=== PATIENT | female | born 1995 | race Caucasian/White ===

== ENCOUNTER 2019-10-07 17:45 | Emergency (ER) | payer SELFPAY ==
[~2019-10-07] VITALS: Ht 172.7 cm; Wt 109.0 kg
[2019-10-07 17:46] VITALS: BP 119/77
--- NOTE | 2019-10-07 18:44 | PHYS DOC ---
Past History Past Medical History: No Pertinent History Past Surgical History: Tonsillectomy Alcohol Use: None General Adult EDM: Chief Complaint: BACK PAIN OR INJURY HPI: HPI: 24-year-old female presents with lower back pain. The patient is an employee at the [employer]. This happened at work. The patient was walking up a staircase when she turned while stepping up a step and had sudden onset of pain in her low back just below the top of her iliac crest. Over the next several minutes the pain increased significantly. The patient had to be wheeled out in wheelchair due to the pain. She is able to walk at this time, but it is very sore and feels tight. It is worse on the right side radiates to the left. She is never had this before. She has had chronic back problems in the past that she states is due to her large breast size. Is different than those typical aches and pains. She denies falling or trauma. Denies numbness, tingling, altered sensation. No fever or chills. Review of Systems: Review of Systems: Constitutional: Denies fever or chills Eyes: Denies change in visual acuity HENT: Denies nasal congestion or sore throat Respiratory: Denies cough or shortness of breath Cardiovascular: Denies chest pain or edema GI: Denies abdominal pain, nausea, vomiting, bloody stools or diarrhea : Denies dysuria Musculoskeletal: Low back pain Integument: Denies rash Neurologic: Denies headache, focal weakness or sensory changes Endocrine: Denies polyuria or polydipsia Lymphatic: Denies swollen glands Psychiatric: Denies depression or anxiety Heart Score: Risk Factors: Risk Factors: DM, Current or recent (<one month) smoker, HTN, HLP, family history of CAD, obesity. Risk Scores: Score 0 - 3: 2.5% MACE over next 6 weeks - Discharge Home Score 4 - 6: 20.3% MACE over next 6 weeks - Admit for Clinical Observation Score 7 - 10: 72.7% MACE over next 6 weeks - Early Invasive Strategies Allergies: Allergies: Allergies Coded Allergies Type Severity Reaction Last Updated Verified No Known Drug Allergies 10/07/19 No Physical Exam: PE: Constitutional: Well developed, well nourished, obese, no acute distress, non- toxic appearance. [] HENT: Normocephalic, atraumatic, bilateral external ears normal, oropharynx moist, no oral exudates, nose normal. [] Eyes: PERRLA, EOMI, conjunctiva normal, no discharge. [] Neck: Normal range of motion, no tenderness, supple, no stridor. [] Cardiovascular:Heart rate regular rhythm, no murmur [] Lungs & Thorax: Bilateral breath sounds clear to auscultation [] Abdomen: Bowel sounds normal, soft, no tenderness, no masses, no pulsatile masses. [] Skin: Warm, dry, no erythema, no rash. [] Back: Tenderness over the right sacroiliac joint [] Extremities: No tenderness, no cyanosis, no clubbing, ROM intact, no edema. [] Neurologic: Alert and oriented X 3, normal motor function, normal sensory function, no focal deficits noted. [] Psychologic: Affect normal, judgement normal, mood normal. [] Current Patient Data: Vital Signs: Vital Signs Date Time Temp Pulse Resp B/P (MAP) Pulse Ox O2 Delivery O2 Flow Rate FiO2 10/07/19 17:46 98.0 81 16 119/77 (91) 99 Room Air EKG: EKG: [] Radiology/Procedures: Radiology/Procedures: [] Course & Med Decision Making: Course & Med Decision Making Pertinent Labs and Imaging studies reviewed. (See chart for details) The patient's x-ray is negative for acute findings. I believe this is right sacroiliitis. I will treat her with [place], prednisone, Flexeril. We will give the first doses in the ED. She is stable for discharge at this time. [] Cali Disclaimer: Cali Disclaimer: This electronic medical record was generated, in whole or in part, using a voice recognition dictation system. Departure Departure: Impression: Primary Impression: Pain of right sacroiliac joint Disposition: HOME/RESIDENCE PRIOR TO ADM Condition: STABLE Referrals: PCP,SYDNEE (PCP) Patient Instructions: Sacroiliac Joint Dysfunction Scripts Cyclobenzaprine Hcl (CYCLOBENZAPRINE HCL) 10 Mg Tablet 1 TAB PO TID PRN for MUSCLE SPASMS, #30 TAB Prov: NEHAL CORTEZ DO 10/07/19 Prednisone (PREDNISONE) 10 Mg Tablet 50 MG PO DAILY for sacroilitis for 3 Days, #15 TAB start 10/08/2019 Prov: NEHAL CORTEZ DO 10/07/19 Hydrocodone Bit/Acetaminophen (NORCO 5-325 TABLET) 1 Each Tablet 1 TAB PO PRN Q6HRS PRN for PAIN, #10 TAB 0 Refills Prov: NEHAL CORTEZ DO 10/07/19 Justification of Admission: Justification of Admission: Justification of Admission Dx: N/A NEHAL CORTEZ DO Oct 07, 2019 18:44
[2019-10-07] MEDS ORDERED: HYDROcodon/IBUPROFEN 7.5/200MG 1 TAB TABLET PO ONE (19:00)
[2019-10-07] MEDS ORDERED: predniSONE 20 MG TABLET PO ONE (19:00)
[2019-10-07] MEDS ORDERED: CYCLOBENZAPRINE 10 MG TABLET. PO ONE (19:00)
[2019-10-07] MEDS ORDERED: PRED-220 PO (19:13)
[2019-10-07] MEDS ORDERED: HYDR-3165 PO (19:13)
[2019-10-07] MEDS ORDERED: CYCL-331 PO (19:14)
--- NOTE | 2019-10-07 19:28 | RAD ---
Lumbar spine 3 views: Reason for examination: Low back pain. Bending/lifting injury today. The vertebral bodies of the lumbar spine are normally aligned anteriorly and posteriorly. No acute fracture or subluxation is seen. Posterior elements are intact. No abnormality seen at the sacrum or sacroiliac joints. IMPRESSION: No acute abnormality evident in the lumbar spine. Electronically signed by: Yesenia Warren MD (10/07/2019 7:25 PM) MICHAEL
== END 2019-10-07 19:20 | disposition home or self-care (01) ==
LOC: ER 17:45
DX: M53.3 Sacrococcygeal disorders, not elsewhere classified (principal); M54.5 Low back pain
CPT/HCPCS: 72100; 99284; J7512

== ENCOUNTER 2019-10-12 11:32 | Emergency (ER) | payer OTHER ==
[~2019-10-12] VITALS: Ht 172.7 cm; Wt 109.0 kg
[2019-10-12 11:32] VITALS: BP 143/85
[~2019-10-12 11:32] MED LIST: CYCL-331 PO; HYDR-3165 PO; PRED-220 PO
[2019-10-12] MEDS ORDERED: MELO7.5T29 PO (12:26)
[2019-10-12] MEDS ORDERED: GABA100C81 PO (12:26)
[2019-10-12] MEDS ORDERED: LIDO1ADH TP (12:26)
--- NOTE | 2019-10-12 12:28 | PHYS DOC ---
Past History Past Medical History: Other Additional Past Medical Histor: back pain Past Surgical History: Tonsillectomy Alcohol Use: None General Adult EDM: Chief Complaint: BACK PAIN OR INJURY HPI: HPI: 24-year-old obese female with no other past medical history, presents the ED with complaints of right-sided low back and buttock pain that radiates down her leg and upper back to her right shoulder blade, the past 6 days. 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 Patient reports her right foot was on a step above her left foot when she leaned forward and twisted to the left, sudden onset back pain. Denies any falls or blunt trauma. States she has had chronic low back pain but no prior imaging, no CT or MRI. Patient states she went back to work the past 2 days but pain got worse today and is needing a work note. EMR was reviewed and patient was prescribed prednisone, Flexeril and [place] for pain. LMP was 1 week ago. No history of IV drug use. Review of systems: Denies associated fever, chills, headache, neck stiffness, rash, saddle anesthesia, urinary or bowel retention or incontinence, nausea, vomiting, diarrhea, abdominal pain, leg weakness, sensory loss, blurry vision, sore throat, cough, chest pain, dyspnea. Review of Systems: Review of Systems: Constitutional: Denies fever or chills Eyes: Denies change in visual acuity HENT: Denies nasal congestion or sore throat Respiratory: Denies cough or shortness of breath Cardiovascular: Denies chest pain or edema GI: Denies abdominal pain, nausea, vomiting, diarrhea : Denies dysuria Musculoskeletal: Denies joint pain Integument: Denies rash Neurologic: Denies headache, focal weakness or sensory changes Endocrine: Denies polyuria or polydipsia Lymphatic: Denies swollen glands Psychiatric: Denies depression or anxiety Heart Score: Risk Factors: Risk Factors: DM, Current or recent (<one month) smoker, HTN, HLP, family history of CAD, obesity. Risk Scores: Score 0 - 3: 2.5% MACE over next 6 weeks - Discharge Home Score 4 - 6: 20.3% MACE over next 6 weeks - Admit for Clinical Observation Score 7 - 10: 72.7% MACE over next 6 weeks - Early Invasive Strategies Allergies: Allergies: Allergies Coded Allergies Type Severity Reaction Last Updated Verified No Known Drug Allergies 10/07/19 No Physical Exam: PE: Constitutional: Well developed, well nourished, no acute distress, non-toxic appearance. [] Obese HENT: Normocephalic, atraumatic, bilateral external ears normal, Eyes: EOMI, conjunctiva normal, no discharge. [] Neck: Normal range of motion, no tenderness, supple, no stridor. [] Cardiovascular:Heart rate regular rhythm, no murmur [] Lungs & Thorax: Bilateral breath sounds clear to auscultation [] Abdomen: Bowel sounds normal, soft, no tenderness, no masses, no pulsatile masses. [] Skin: Warm, dry, no erythema, no rash. [] Back: No tenderness, no CVA tenderness. [] Extremities: No tenderness, no cyanosis, no clubbing, ROM intact, no edema, ttp over right SI joint and right buttock, normal gait Neurologic: Alert and oriented X 3, normal motor function, normal sensory function, no focal deficits noted. [] Psychologic: Affect normal, judgement normal, mood normal. [] Current Patient Data: Vital Signs: Vital Signs Date Time Temp Pulse Resp B/P (MAP) Pulse Ox O2 Delivery O2 Flow Rate FiO2 10/12/19 11:32 98.0 80 16 143/85 (104) 97 Room Air EKG: EKG: [] Radiology/Procedures: Radiology/Procedures: [] Course & Med Decision Making: Course & Med Decision Making Pertinent Labs and Imaging studies reviewed. (See chart for details) Concern for right-sided sciatica/right SI joint pain, unable to work and is requesting a work note. No neurologic deficits, atraumatic back pain. No indication for emergent imaging at this time. Patient will be prescribed anti- inflammatories, gabapentin and Lidoderm patch. Strict ED return precautions were given for neurologic deficits, saddle anesthesia, urine or bowel retention or incontinence. Encouraged urgent outpatient follow-up with PMD and Ortho. Life-threatening processes were considered but are low suspicion at this time, given history and physical exam. Pt was educated on all prescription medications and adverse effects. All patient's questions were answered and pt was stable at time of discharge. Differential includes aortic dissection, cauda equina syndrome, transverse myelitis, spinal cord compression, epidural abscess or hematoma, osteomyelitis, disc herniation, surgical abdomen, stable or unstable fracture, renal colic/uros epsis, musculoskeletal injury, traumatic injury, intraabdominal or pelvic bleeding, I spoken with the patient and her caregivers. I explained the patient's condition, diagnoses and treatment plan based on the information available to me at this time. I have answered the patient and her caregiver's questions and addressed any concerns. The patient and her caregivers have a good understanding of patient's diagnosis, condition and treatment plan as can be expected at this point. Vital signs have been stable. Patient's condition is stable and appropriate for discharge from the emergency department. Patient will pursue further outpatient evaluation with primary care physician or other designated or consulting physician as outlined in the discharge instruc tions. The patient and/or caregivers are agreeable to this plan of care and follow-up instructions have been explained in detail. The patient and/or caregivers have received these instructions in written form and have expressed an understanding of the discharge instructions. The patient and/or caregivers are aware that any significant change of condition or worsening of symptoms should prompt immediate return to this or the closest emergency department or call to 911. Cali Disclaimer: Cali Disclaimer: This electronic medical record was generated, in whole or in part, using a voice recognition dictation system. Departure Departure: Impression: Primary Impression: Right-sided low back pain with right-sided sciatica Additional Impression: Disorder of right sacroiliac joint Disposition: 01 HOME/RESIDENCE PRIOR TO ADM Condition: STABLE Referrals: PCP,NO (PCP) Patient Instructions: Sciatica, Sciatica with Rehab-[facility] Additional Instructions: Jair Zuleta MD Orthopaedic Surgery [facility] Address: [address] [place] [id number] Scripts Gabapentin (Neurontin) 100 Mg Capsule 300 MG PO TID PRN for PAIN for 5 Days, #45 CAP Prov: TABATHA GIBBONS DO 10/12/19 Meloxicam (MELOXICAM) 7.5 Mg Tablet 1 TAB PO DAILY for pain for 7 Days, #7 TAB 0 Refills Prov: TABTAHA GIBBONS DO 10/12/19 Lidocaine/Menthol (LIDOPATCH) 1 Each Adh..patch 1 CATRACHO TP DAILY for pain for 5 Days, #5 EACH 0 Refills Prov: TABATHA GIBBONS DO 10/12/19 Justification of Admission: Justification of Admission: Justification of Admission Dx: N/A TABATHA GIBBONS DO Oct 12, 2019 12:28
[2019-10-12] MEDS ORDERED: diazePAM 5 MG TABLET. PO ONE (12:30)
== END 2019-10-12 12:49 | disposition home or self-care (01) ==
LOC: ER 11:32
DX: M54.41 Lumbago with sciatica, right side (principal); M53.3 Sacrococcygeal disorders, not elsewhere classified; G89.29 Other chronic pain
CPT/HCPCS: 99283